=== PATIENT | male | born 1940 | race Hispanic/Latino ===

== ENCOUNTER 2018-10-29 18:37 | Inpatient (IN) | payer MEDICARE ==
[2018-10-29] MEDS ORDERED: ZOFRAN IV PRN (19:12)
[2018-10-29] MEDS ORDERED: SODIUM CHLORIDE FLUSH SYRINGE 10 ML IV PRN (19:12)
[2018-10-29] MEDS ORDERED: TYLENOL PO PRN (19:12)
[2018-10-29] MEDS ORDERED: REGLAN IV PRN (19:12)
[2018-10-29] MEDS ORDERED: PERCOCET 5/325 PO PRN (19:12)
--- NOTE | 2018-10-29 19:12 | History and Physical Report ---
History of Present Illness Date of examination: 10/29/18 Date of admission: 10/29/18 18:37 Medications and Allergies Allergies Allergy/AdvReac Type Severity Reaction Status Date / Time No Known Allergies Allergy Unverified 10/29/18 17:02
[2018-10-29 20:00] LABS: Basophils % (Auto) 0.4 % (0.0-1.8); Eosinophils # (Auto) 0.2 K/mm3 (0.0-0.4); Eosinophils % (Auto) 2.3 % (0.0-4.3); Hematocrit 31.6 % (35.5-45.6); Hemoglobin 10.8 gm/dl (11.8-15.2); Lymphocytes # (Auto) 1.7 K/mm3 (1.2-5.4); Lymphocytes % (Auto) 16.2 % (13.4-35.0); Mean Corpuscular HGB Conc 34 % (32-34); Mean Corpuscular Volume 89 fl (84-94); Monocytes % (Auto) 9.6 % (0.0-7.3); Platelet Count 238 K/mm3 (140-440); Red Blood Count 3.56 M/mm3 (3.65-5.03); Red Cell Distribution Width 14.5 % (13.2-15.2)
[2018-10-29 20:32] LABS: Albumin 1.4 g/dL (3.9-5); Calcium 6.7 mg/dL (8.4-10.2); Chol/HDL Ratio 1.5 %
[2018-10-29] MEDS: PEPCID PO SCH (22:44)
[2018-10-29] MEDS: K-DUR PO SCH (22:44)
[2018-10-29] MEDS: HEPARIN SUB-Q SCH (22:45)
[2018-10-29] MEDS: SODIUM CHLORIDE FLUSH SYRINGE 10 ML IV SCH (22:45)
[2018-10-30] MEDS: K-DUR PO SCH ×4 (02:40→21:38)
[2018-10-30] MEDS ORDERED: LASIX IV SCH (06:00)
--- NOTE | 2018-10-30 06:33 | Event Note ---
Date: 10/29/18 See H//P in reports Nephrotic syndrome CKD Htn Severe malnutrition Albumin 1.4 Hypokalemia
--- NOTE | 2018-10-30 07:09 | History and Physical Report ---
CHIEF COMPLAINT: 1. Shortness of breath for 1 week. 2. Swelling of both the legs for 1 month. HISTORY OF PRESENT ILLNESS: A 78-year-old male with history of hypertension, chronic kidney disease, hyperlipidemia, hypertension, and GERD, comes in for swelling of both the legs for 1-month duration and shortness of breath on minimal exertion for 1 week. Orthopnea present. The patient sent directly from Dr. Toledo's office for anasarca. The patient has been having swelling of the legs with 4+ pitting edema. No chest pain or palpitations. The patient has class 4 [employer] symptoms. No fever or chills. No recent travel. The patient also stated that he is getting excessively tired because he has to take care of her sick spouse. No exacerbating or relieving factors. PAST MEDICAL HISTORY: 1. As mentioned hypertension. 2. Depression. 3. Hyperlipidemia. 4. Gastroesophageal reflux disease. 5. BPH. PAST SURGICAL HISTORY: Unavailable. SOCIAL HISTORY: Does not smoke. No alcohol, no recreational drugs. FAMILY HISTORY: Significant for hypertension. REVIEW OF SYSTEMS: Significant for orthopnea, class 4 NYHA symptoms and severe swelling of both the legs with 4+ pitting edema. Otherwise, review of systems negative. No fever or chills. PHYSICAL EXAMINATION: GENERAL: Elderly male lying in bed comfortably. VITAL SIGNS: Blood pressure is 98/55, pulse is 55, temperature is 97.7, respiratory rate is 20. HEENT: Unremarkable. Pupils equal and reactive. NECK: Supple, no lymphadenopathy, no thyromegaly. LUNGS: Clear to auscultation and percussion. Good air entry. CARDIOVASCULAR: S1, S2 heard. No gallop, no murmur, no rub. Apical impulse in left fifth intercostal space and midclavicular line. ABDOMEN: Soft and benign. No hepatosplenomegaly. No guarding, no rigidity. Hernial orifices are normal. EXTREMITIES: 4+ pitting edema present. Scrotum is swollen. CENTRAL NERVOUS SYSTEM: Alert and oriented x 4, nonfocal exam. SKIN: Normal. LABORATORY DATA: Significant for white count of 10,500, H and H is 10.8 and 31.6, platelet count is 238,000. Sodium is 139, potassium is 2.7, BUN and creatinine is 33 and 3.7, glucose is 152, calcium is 6.7. Total protein is 4.6, albumin is 1.4. LDL cholesterol is 12. Cholesterol is 39, HDL is 26. EKG and chest x-ray are pending. ASSESSMENT AND PLAN: 1. Anasarca versus nephrotic syndrome. A 24-hour urine collection for protein was ordered. IV Lasix for the time being. 2. Chronic kidney disease. Nephrology consulted. Dr. Toledo's patient was directly admitted. 3. Hypertension. Continue antihypertensives. 4. Congestive heart failure secondary to volume overload. Echocardiogram ordered. 5. Congestive heart failure exacerbation. IV Lasix. Echo for ejection fraction. 6. Gastroesophageal reflux disease. Continue pantoprazole. 7. Benign prostatic hypertrophy. Continue Flomax. 8. Depression. Continue Celexa. 9. Hyperlipidemia. Continue atorvastatin. 10. Deep venous thrombosis prophylaxis, heparin 5000 q. 12. In summary, the patient has anasarca/nephrotic syndrome, chronic kidney disease, hyperlipidemia, hypertension, GERD, and BPH. Hypokalemia, supplemented. JOB# [id number] VSM/NTS
[2018-10-30 07:53] LABS: Basophils # (Auto) 0.1 K/mm3 (0.0-0.1); Basophils % (Auto) 0.8 % (0.0-1.8); Eosinophils # (Auto) 0.5 K/mm3 (0.0-0.4); Eosinophils % (Auto) 5.1 % (0.0-4.3); Hematocrit 35.3 % (35.5-45.6); Hemoglobin 11.8 gm/dl (11.8-15.2); Lymphocytes # (Auto) 1.9 K/mm3 (1.2-5.4); Lymphocytes % (Auto) 20.6 % (13.4-35.0); Mean Corpuscular HGB Conc 33 % (32-34); Mean Corpuscular Volume 88 fl (84-94); Monocytes # (Auto) 0.8 K/mm3 (0.0-0.8); Monocytes % (Auto) 8.9 % (0.0-7.3); Platelet Count 248 K/mm3 (140-440); Red Blood Count 4.01 M/mm3 (3.65-5.03); Red Cell Distribution Width 14.1 % (13.2-15.2)
[2018-10-30 08:20] LABS: Calcium 6.7 mg/dL (8.4-10.2)
[2018-10-30] MEDS ORDERED: LASIX PO SCH (09:00)
[2018-10-30] MEDS: PROTONIX PO SCH (09:26)
[2018-10-30] MEDS: celeXA PO SCH (09:26)
[2018-10-30] MEDS: PEPCID PO SCH ×2 (09:26→21:44)
[2018-10-30] MEDS: FLOMAX PO SCH (09:26)
[2018-10-30] MEDS: ROCALTROL PO SCH (09:27)
[2018-10-30] MEDS: NORVASC PO SCH (09:28)
[2018-10-30] MEDS: LOPRESSOR PO SCH ×2 (09:28→21:40)
[2018-10-30] MEDS: HEPARIN SUB-Q SCH ×2 (09:28→21:38)
[2018-10-30] MEDS: SODIUM CHLORIDE FLUSH SYRINGE 10 ML IV SCH ×2 (09:28→21:40)
[2018-10-30] MEDS ORDERED: NON-FORMULARY (Pantoprazole Sodium 40 MG) PO SCH (10:00)
[2018-10-30] MEDS ORDERED: NON-FORMULARY (Metoprolol Tartrate 50 MG) PO SCH (10:00)
[2018-10-30] MEDS ORDERED: ATORVASTATIN CALCIUM 10 MG PO SCH (10:00)
--- NOTE | 2018-10-30 10:28 | Consultation ---
History of Present Illness - Reason for Consult chronic renal failure, other (edema) - History of Present Illness This is a very pleasant 78-year-old male with a past medical history of chronic kidney disease now stage IV in the setting of diabetes, hypertension, who is well known to our outpatient clinic as he sees my colleague Dr. Toledo in the office. He was a direct admit from her nephrology clinic secondary to worsening lower extremity edema as well as scrotal edema and overall worsening anasarca. The symptoms have apparently been going on and then progressively worsening over the last 2 weeks per patient and daughter at bedside. He was started on oral Lasix therapy and he is in the process of obtaining 24-hour urine collection for proteinuria evaluation. Labs noted upon admission show serum creatinine initially at its baseline of around 3.5-3.8 with significantly reduced albumen levels of 1.4. He has significant lower extremity edema and anasarca leading up to his abdomen. Review of his charts have shown a progressively worsening kidney function. He denies history of congestive heart failure or any liver disease at this time. Past History Past Medical History: diabetes, hypertension, hyperlipidemia, renal failure Past Surgical History: Other (bladder surgery, knee surgery) Social history: no significant social history Family history: no significant family history Medications and Allergies Allergies Allergy/AdvReac Type Severity Reaction Status Date / Time No Known Allergies Allergy Unverified 10/29/18 17:02 Home Medications Medication Instructions Recorded Confirmed Last Taken Type Amlodipine Besylate [Norvasc] 10 mg PO DAILY 10/29/18 10/29/18 10/29/18 History 10 Atorvastatin Calcium [Lipitor] 10 mg PO DAILY 10/29/18 10/29/18 10/29/18 History 10MG Furosemide [Lasix TAB] 40 mg PO BID 10/29/18 10/29/18 10/29/18 History 40MG Metoprolol Tartrate 50 mg PO BID 10/29/18 10/29/18 10/29/18 History 50MG Pantoprazole Sodium 40 mg PO DAILY 10/29/18 10/29/18 10/29/18 History Calcitriol [Rocaltrol] 0.5 mcg PO 10/30/18 10/29/18 History 0.5MCG Citalopram Hydrobromide 20 mg PO DAILY 10/30/18 10/30/18 10/29/18 History [Citalopram HBr] 20MG Potassium 20 meq PO BID 10/30/18 10/30/18 10/29/18 History 20MG Tamsulosin [Flomax] 0.4 mg PO QDAY 10/30/18 10/30/18 10/28/18 History Active Meds: Active Medications Acetaminophen (Tylenol) 650 mg PO Q4H PRN PRN Reason: Pain MILD(1-3)/Fever >100.5/CORONEL Amlodipine Besylate (Norvasc) 10 mg PO DAILY [facility] Last Admin: 10/30/18 09:28 Dose: Not Given Documented by: Atorvastatin Calcium (Lipitor) 10 mg PO QHS [facility] Calcitriol (Rocaltrol) 0.5 mcg PO QDAY [facility] Last Admin: 10/30/18 09:27 Dose: 0.5 mcg Documented by: Citalopram Hydrobromide (Celexa) 20 mg PO DAILY [facility] Last Admin: 10/30/18 09:26 Dose: 20 mg Documented by: Famotidine (Pepcid) 10 mg PO BID [facility] Last Admin: 10/30/18 09:26 Dose: 10 mg Documented by: Furosemide (Lasix) 40 mg PO 0600,1800 [facility] Last Admin: 10/30/18 09:26 Dose: 40 mg Documented by: Heparin Sodium (Porcine) (Heparin) 5,000 unit SUB-Q Q12HR [facility] Last Admin: 10/30/18 09:28 Dose: Not Given Documented by: Metoclopramide HCl (Reglan) 10 mg IV Q6H PRN PRN Reason: Nausea And Vomiting Metoprolol Tartrate (Lopressor) 50 mg PO BID [facility] Last Admin: 10/30/18 09:28 Dose: Not Given Documented by: Ondansetron HCl (Zofran) 4 mg IV Q8H PRN PRN Reason: Nausea And Vomiting Last Admin: 10/30/18 09:27 Dose: 4 mg Documented by: Oxycodone/Acetaminophen (Percocet 5/325) 1 tab PO Q6H PRN PRN Reason: Pain, Moderate (4-6) Last Admin: 10/29/18 22:47 Dose: 1 tab Documented by: Pantoprazole Sodium (Protonix) 40 mg PO DAILY [facility] Last Admin: 10/30/18 09:26 Dose: 40 mg Documented by: Potassium Chloride (K-Dur) 20 meq PO Q12H [facility] Last Admin: 10/30/18 09:26 Dose: 20 meq Documented by: Sodium Chloride (Sodium Chloride Flush Syringe 10 Ml) 10 ml IV BID [facility] Last Admin: 10/30/18 09:28 Dose: 10 ml Documented by: Sodium Chloride (Sodium Chloride Flush Syringe 10 Ml) 10 ml IV PRN PRN PRN Reason: LINE FLUSH Tamsulosin HCl (Flomax) 0.4 mg PO QDAY [facility] Last Admin: 10/30/18 09:26 Dose: 0.4 mg Documented by: Review of Systems All systems: negative Constitutional: weight gain, fatigue, weakness Musculoskeletal: other (+edema/anasarca) Exam - Vital Signs Vital signs: Vital Signs Pulse Resp BP Pulse Ox 57 L 20 131/65 98 10/29/18 20:02 10/29/18 20:02 10/29/18 20:02 10/29/18 20:02 - General Appearance General appearance: appears stated age, chronically ill, frail EENT: ATNC, PERRL Neck: Present: neck supple, trachea midline Respiratory: Clear to Ascultation, Normal Exam Heart: regular, S1S2 Gastrointestinal: Present: normal, normoactive bowel sounds Integumentary: other Neurologic: no focal deficit, no asterixis, alert and oriented x3, CN 3-12 intact Musculoskeletal: Present: other (3+ pitting edema ) Psychiatric: mood/affect appropriate, cooperative Results - Lab Results 10/30/18 07:29 10/30/18 07:29 Most recent lab results Calcium 6.7 mg/dL (8.4-10.2) L 10/30/18 07:29 Assessment and Plan - Patient Problems (1) CKD (chronic kidney disease), stage IV Current Visit: Yes Status: Chronic Plan to address problem: Patient with essentially progressively worsening chronic kidney disease noted on laboratory studies. He is now progressed to stage IV. He is not presenting with any acute uremic symptoms at this time that would require any hemodialysis initiation. We will aggressively diuresis and will in fact switched his by mouth to IV formula of Lasix twice a day along with albumen supplementation to further augment appropriate diuresis. (2) Hypertensive chronic kidney disease with stage 1 through stage 4 chronic kidney disease, or unspecified chronic kidney disease Current Visit: Yes Status: Chronic Plan to address problem: Continue on current regimen and we'll monitor closely (3) Type 2 diabetes mellitus with diabetic chronic kidney disease Current Visit: Yes Status: Chronic Qualifiers: Chronic kidney disease stage: stage 4 (severe) Plan to address problem: We will assess the hemoglobin A1c level today to assess control of his diabetes. Diabetes management per primary team. (4) Fluid overload Current Visit: Yes Status: Acute Plan to address problem: Significantly worsening fluid overload over the past 2-3 weeks of unclear etiology. One possible cause could be just his progressive chronic kidney disease. He has significant anasarca and edema on examination and he is undergoing a 24-hour urine collection for proteinuria evaluation. I have also added various serologic laboratory studies for further evaluation. Depending on the level of proteinuria and results of renal ultrasound we'll decide whether or not biopsy would be necessary at this time given his significantly worsening anasarca over a short period of time. (5) Secondary hyperparathyroidism (of renal origin) Current Visit: Yes Status: Acute Plan to address problem: Patient to continue home dose of calcitriol.
--- NOTE | 2018-10-30 16:52 | XRay Report ---
CHEST 2 VIEWS INDICATION / CLINICAL INFORMATION: CHF. COMPARISON: Chest x-ray 04/24/2012 FINDINGS: SUPPORT DEVICES: None. HEART / MEDIASTINUM: No significant abnormality. LUNGS / PLEURA: Small left pleural effusion No pneumothorax. ADDITIONAL FINDINGS: No significant additional findings. IMPRESSION: 1. New small left pleural effusion Signer Name: Kam Strange MD Signed: 10/30/2018 4:47 PM Workstation Name: [id number]
--- NOTE | 2018-10-30 17:54 | Progress Note ---
Assessment and Plan Assessment and plan: Patient is a 78 yo man with a history of hypertension, CKD, GERD, BPH, depression, dyslipidemia who presents to [facility] via direct admission from [facility], Dr. Toledo's office for anasarca with sob. He was found to have significant pitting leg edema and severely low albumin. 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 Follow-up on current diagnosis of Anasarca. No overnight events reported to me. Patient denies any chest pain, nausea/vomiting or severe headaches. Imaging, nursing note, chart, labs and old chart reviewed. Discussed with patient. son Griffin and daughter Rubi at bedside, also granddaughter Shanelle at bedside Hospitalist Physical - Physical exam Narrative exam: Gen: thin frail, chronic disable appearing WDWN, NAD, Awake, Alert, Orientated x 3 HEENT: NCAT, EOMI, PERRL, OP Clear Neck: supple, no adenopathy, no thyromegaly, no JVD CVS/Heart: RRR, normal S1S2, pulses present bilaterally Chest/Lungs: diminished, Symmetrical chest expansion, good air entry bilaterally GI/Abdomen: soft, diminished, good bowel sounds, no guarding or rebound /Bladder: sha anasarcha, no suprapubic tenderness, no CVA or paraspinal tenderness Extermity/Skin: significant bilateral pitting leg edema MSK: FROM x 4 Neuro: CN 2-12 grossly intact, no new focal deficits Psych: calm - Constitutional Vitals: Temp Pulse Resp BP Pulse Ox 97.6 F 59 L 18 106/56 99 10/30/18 08:32 10/30/18 08:32 10/30/18 08:32 10/30/18 08:32 10/30/18 08:32 Results - Labs CBC & Chem 7: 10/30/18 07:29 10/30/18 07:29 Labs: Laboratory Last Values WBC 9.4 K/mm3 (4.5-11.0) 10/30/18 07:29 RBC 4.01 M/mm3 (3.65-5.03) 10/30/18 07:29 Hgb 11.8 gm/dl (11.8-15.2) 10/30/18 07:29 Hct 35.3 % (35.5-45.6) L 10/30/18 07:29 MCV 88 fl (84-94) 10/30/18 07:29 MCH 29 pg (28-32) 10/30/18 07: MCHC 33 % (32-34) 10/30/18 07:29 RDW 14.1 % (13.2-15.2) 10/30/18 07:29 Plt Count 248 K/mm3 (140-440) 10/30/18 07:29 Lymph % (Auto) 20.6 % (13.4-35.0) 10/30/18 07:29 Ogle % (Auto) 8.9 % (0.0-7.3) H 10/30/18 07:29 Eos % (Auto) 5.1 % (0.0-4.3) H 10/30/18 07:29 Baso % (Auto) 0.8 % (0.0-1.8) 10/30/18 07:29 Lymph # 1.9 K/mm3 (1.2-5.4) 10/30/18 07:29 Ogle # 0.8 K/mm3 (0.0-0.8) 10/30/18 07:29 Eos # 0.5 K/mm3 (0.0-0.4) H 10/30/18 07:29 Baso # 0.1 K/mm3 (0.0-0.1) 10/30/18 07:29 Seg Neutrophils % 64.6 % (40.0-70.0) 10/30/18 07:29 Seg Neutrophils # 6.1 K/mm3 (1.8-7.7) 10/30/18 07:29 Sodium 143 mmol/L (137-145) 10/30/18 07:29 Potassium 3.3 mmol/L (3.6-5.0) L D 10/30/18 07:29 Chloride 110.1 mmol/L (98-107) H 10/30/18 07:29 Carbon Dioxide 23 mmol/L (22-30) 10/30/18 07:29 13 mmol/L 10/30/18 07:29 BUN 33 mg/dL (9-20) H 10/30/18 07:29 3.6 mg/dL (0.8-1.5) H 10/30/18 07:29 Estimated GFR 17 ml/min 10/30/18 07:29 9 % 10/30/18 07:29 Glucose 91 mg/dL (75-100) 10/30/18 07:29 POC Glucose 145 (70-105) H 10/29/18 21:08 5.8 % (4-6) 10/29/18 19:36 Calcium 6.7 mg/dL (8.4-10.2) L 10/30/18 07:29 0.30 mg/dL (0.1-1.2) 10/29/18 19:36 AST 28 units/L (5-40) 10/29/18 19:36 ALT 31 units/L (7-56) 10/29/18 19:36 104 units/L (35-129) 10/29/18 19:36 4.6 g/dL (6.3-8.2) L 10/29/18 19:36 1.4 g/dL (3.9-5) L 10/29/18 19:36 0.4 % 10/29/18 19:36 Triglycerides 28 mg/dL (2-149) 10/29/18 19:36 Cholesterol 39 mg/dL (50-199) L 10/29/18 19:36 12 mg/dL (50-130) L 10/29/18 19:36 26 mg/dL (40-59) L 10/29/18 19:36 1.50 % 10/29/18 19:36 Hep Bs Antigen Non-reactive (Negative) 10/30/18 10:53 Non-reactive (NonReactive) 10/30/18 10:53 Active Medications - Current Medications Current Medications: Generic Name Dose Route Start Last Admin Trade Name Tri PRN Reason Stop Dose Admin Acetaminophen 650 mg 10/29/18 19:12 Tylenol PO Q4H PRN Pain MILD(1-3)/Fever >100.5/CORONEL Albumin Human 25 gm 10/30/18 22:00 Alburx 25% (Albumin) IV Q12HR [facility] Amlodipine Besylate 10 mg 10/30/18 10:00 10/30/18 09:28 Norvasc PO Not Given DAILY [facility] Atorvastatin Calcium 10 mg 10/30/18 22:00 Lipitor PO QHS [facility] Calcitriol 0.5 mcg 10/30/18 10:00 10/30/18 09:27 Rocaltrol PO 0.5 mcg QDAY [facility] Administration Citalopram Hydrobromide 20 mg 10/30/18 10:00 10/30/18 09:26 Celexa PO 20 mg DAILY [facility] Administration Famotidine 10 mg 10/29/18 22:00 10/30/18 09:26 Pepcid PO 10 mg BID [facility] Administration Furosemide 80 mg 10/30/18 18:00 Lasix IV 0600,1800 [facility] Heparin Sodium (Porcine) 5,000 unit 10/29/18 22:00 10/30/18 09:28 Heparin SUB-Q Not Given Q12HR [facility] Metoclopramide HCl 10 mg 10/29/18 19:12 Reglan IV Q6H PRN Nausea And Vomiting Metoprolol Tartrate 50 mg 10/30/18 10:00 10/30/18 09:28 Lopressor PO Not Given BID [facility] Ondansetron HCl 4 mg 10/29/18 19:12 10/30/18 09:27 Zofran IV 4 mg Q8H PRN Administration Nausea And Vomiting Oxycodone/Acetaminophen 1 tab 10/29/18 19:12 10/29/18 22:47 Percocet 5/325 PO 1 tab Q6H PRN Administration Pain, Moderate (4-6) Pantoprazole Sodium 40 mg 10/30/18 10:00 10/30/18 09:26 Protonix PO 40 mg DAILY [facility] Administration Potassium Chloride 20 meq 10/30/18 10:00 10/30/18 09:26 K-Dur PO 20 meq Q12H [facility] Administration Sodium Chloride 10 ml 10/29/18 22:00 10/30/18 09:28 Sodium Chloride Flush Syringe 10 Ml IV 10 ml BID [facility] Administration Sodium Chloride 10 ml 07/30/19 19:12 Sodium Chloride Flush Syringe 10 Ml IV PRN PRN LINE FLUSH Tamsulosin HCl 0.4 mg 10/30/18 10:00 10/30/18 09:26 Flomax PO 0.4 mg QDAY [facility] Administration Nutrition/Malnutrition Assess - Dietary Evaluation Nutrition/Malnutrition Findings: Nutrition Notes Start: 10/30/18 17:21 Freq: Status: Active Protocol: Document 10/30/18 17:21 RM (Rec: 10/30/18 17:35 RM [id number]) Nutrition Notes Need for Assessment generated from: MD Order Initial or Follow up Assessment Current Diagnosis CKD(stage I-IV),Hypertension, Heart Failure,Hyperlipidemia Other Pertinent Diagnosis Nephrotic syndrome, Depression , GERD, Volume overload Current Diet Renal w/Ensure Enlive Labs/Tests A1c 5.8 Pertinent Medications Zofran, K-dur, Lasix Height 5 ft 10 in Weight 83.1 kg [place] Body Weight (kg) 75.45 BMI 26.2 Subjective/Other Information Consulted for ONS diet. Screened for new onset DM. Pt stated that his appetite is good. Stated that ate 50% of breakfast and all of his lunch except for the chicken because it was not seasoned. Noted preferences. Pt stated that he drank some of the Ensure Enlive. Pt stated that he was diagnosed w/DM in the past but wants to bring A1c out of pre diabetic range. Pt stated that he is unable to read the print on nutritional labels. Write gave pt office analyst w/ guidelines for measuring out 1 carbohydrate serving worth of food. Burn Absent Trauma Absent #1 Nutrition Diagnosis Inadequate oral intake Etiology food preferences As Evidenced by Signs and Symptoms pt statement that he ate 50% of his breakfast and all of his lunch except the chicken Is patient on ventilator? No Is Patient Ambulatory and/or Out of Bed No REE-([place]-confined to bed) 1887.000 Calculation Used for Recommendations [place] Additional Notes Protein Needs: (0.8-1g/kg) Fluid Needs: 1 ml/kcal Nutrition Intervention Change Diet Order: Continue current Add Supplement/Snack (indicate name/kcal Nepro 1 daily /protein ) Provides kCal: 425 Provides Protein (gm) 19 Education Handouts Provided Diabetes Nutrition Placemat Goal #1 Meet at least 75% of calorie and protein needs via PO and ONS intakes Anticipated Discharge Needs: Renal diet Follow-Up By: 11/01/18 Additional Comments Follow for PO and ONS intakes
[2018-10-30] MEDS: LASIX IV SCH (19:09)
[2018-10-30 20:47] LABS: Hematocrit 36.6 % (35.5-45.6); Hemoglobin 11.4 gm/dl (11.8-15.2); Mean Corpuscular HGB Conc 31 % (32-34); Mean Corpuscular Volume 94 fl (84-94); Platelet Count 242 K/mm3 (140-440); Red Blood Count 3.88 M/mm3 (3.65-5.03); Red Cell Distribution Width 16.1 % (13.2-15.2)
[2018-10-30 21:01] LABS: Albumin 1.4 g/dL (3.9-5); Calcium 6.6 mg/dL (8.4-10.2)
[2018-10-30] MEDS ORDERED: ALBURX 25% (ALBUMIN) IV SCH (22:00)
[2018-10-30 22:24] LABS: Creatinine 24 Hour,Urine 0.7 (0.8-2.8)
[2018-10-30] MEDS: ALBURX 25% (ALBUMIN) IV SCH (23:04)
[2018-10-31] MEDS: LASIX IV SCH ×2 (06:37→18:13)
--- NOTE | 2018-10-31 09:36 | Progress Note ---
Assessment and Plan - Patient Problems (1) CKD (chronic kidney disease), stage IV Current Visit: Yes Status: Chronic Plan to address problem: Patient with essentially progressively worsening chronic kidney disease noted on laboratory studies. He is now progressed to stage IV. He is not presenting with any acute uremic symptoms at this time that would require any hemodialysis initiation. We will aggressively diuresis with current regimen of IV Lasix twice a day along with albumen supplementation to further augment appropriate diuresis. (2) Hypertensive chronic kidney disease with stage 1 through stage 4 chronic kidney disease, or unspecified chronic kidney disease Current Visit: Yes Status: Chronic Plan to address problem: Continue on current regimen and we'll monitor closely (3) Type 2 diabetes mellitus with diabetic chronic kidney disease Current Visit: Yes Status: Chronic Qualifiers: Chronic kidney disease stage: stage 4 (severe) Plan to address problem: Diabetes management per primary team. (4) Fluid overload Current Visit: Yes Status: Acute Plan to address problem: Significantly worsening fluid overload over the past 2-3 weeks of unclear etiology. One possible cause could be just his progressive chronic kidney disease. He has significant anasarca and edema on examination and he underwent a 24-hour urine collection for proteinuria evaluation, with only 220 mg/dL noted. This is in the setting of low urine volume collection as well as low urine creatinine which may overall affect accuracy of results. Serologic tests are pending at this time. (5) Secondary hyperparathyroidism (of renal origin) Current Visit: Yes Status: Acute Plan to address problem: Patient to continue home dose of calcitriol. Subjective Date of service: 10/31/18 Interval history: No acute events overnight. He is diuresing more appropriately at this time. Swelling is improving but still is significant. He is on Lasix 80 mg IV twice a day with proceeding doses of albumin. 24-hour urine study noted with only 1 L of urine output volume collected and low urine creatinine which may cause inconsistent findings. He is only spilling 220 mg/dL during this 24-hour urine study. Objective - Vital Signs Vital signs: Vital Signs - 12hr 10/30/18 10/30/18 10/31/18 21:40 23:26 04:15 Temperature 98.4 F 98.1 F Pulse Rate 56 L 56 L 61 Respiratory 18 18 Rate Blood Pressure 125/65 116/68 O2 Sat by Pulse 92 90 Oximetry 10/31/18 08:05 Temperature 97.7 F Pulse Rate Respiratory 18 Rate Blood Pressure 130/66 O2 Sat by Pulse Oximetry - General Appearance General appearance: well-developed, well-nourished, appears stated age EENT: ATNC, PERRL Neck: no JVD, no thyromegaly Respiratory: Present: Decreased Breath Sounds Cardiology: regular, normal heart rate Gastrointestinal: normal, normoactive bowel sounds Integumentary: no rash, warm and dry Neurologic: no focal deficit, no asterixis, CN 3-12 intact Musculoskeletal: other (2-3+ pitting edema ) Psychiatric: mood/affect appropriate, cooperative - Lab 10/30/18 19:50 10/30/18 19:50 Most recent lab results Calcium 6.6 mg/dL (8.4-10.2) L 10/30/18 19:50 69.0 mg/dL (0.1-20.0) H 10/29/18 22:15 Ur Total Protein 24 Hr 220.00 mg/dL (2-200) H 10/29/18 22:15 22 mg/dL (5-11.8) H 10/29/18 22:15 - Allied health notes Allied health notes reviewed: nursing Medications & Allergies - Medications Allergies/Adverse Reactions: Allergies No Known Allergies Allergy (Unverified 10/29/18 17:02) Home Medications: Home Medications Medication Instructions Recorded Confirmed Last Taken Type Amlodipine Besylate [Norvasc] 10 mg PO DAILY 10/29/18 10/29/18 10/29/18 History 10 Atorvastatin Calcium [Lipitor] 10 mg PO DAILY 10/29/18 10/29/18 10/29/18 History 10MG Furosemide [Lasix TAB] 40 mg PO BID 10/29/18 10/29/18 10/29/18 History 40MG Metoprolol Tartrate 50 mg PO BID 10/29/18 10/29/18 10/29/18 History 50MG Pantoprazole Sodium 40 mg PO DAILY 10/29/18 10/29/18 10/29/18 History Calcitriol [Rocaltrol] 0.5 mcg PO 10/30/18 10/29/18 History 0.5MCG Citalopram Hydrobromide 20 mg PO DAILY 10/30/18 10/30/18 10/29/18 History [Citalopram HBr] 20MG Potassium 20 meq PO BID 10/30/18 10/30/18 10/29/18 History 20MG Tamsulosin [Flomax] 0.4 mg PO QDAY 10/30/18 10/30/18 10/28/18 History Active Medications: Generic Name Dose Route Start Last Admin Trade Name Freq PRN Reason Stop Dose Admin Acetaminophen 650 mg 10/29/18 19:12 Tylenol PO Q4H PRN Pain MILD(1-3)/Fever >100.5/CORONEL Albumin Human 25 gm 10/30/18 22:00 10/30/18 23:04 Alburx 25% (Albumin) IV 25 gm Q12HR BEBO Administration Amlodipine Besylate 10 mg 10/30/18 10:00 10/30/18 09:28 Norvasc PO Not Given DAILY BEBO Atorvastatin Calcium 10 mg 10/30/18 22:00 10/30/18 21:38 Lipitor PO 10 mg QHS BEBO Administration Calcitriol 0.5 mcg 10/30/18 10:00 10/30/18 09:27 Rocaltrol PO 0.5 mcg QDAY BEBO Administration Citalopram Hydrobromide 20 mg 10/30/18 10:00 10/30/18 09:26 Celexa PO 20 mg DAILY BEBO Administration Famotidine 10 mg 10/29/18 22:00 10/30/18 21:44 Pepcid PO 10 mg BID BEBO Administration Furosemide 80 mg 10/30/18 18:00 10/31/18 06:37 Lasix IV 80 mg 0600,1800 BEBO Administration Heparin Sodium (Porcine) 5,000 unit 10/29/18 22:00 10/30/18 21:38 Heparin SUB-Q 5,000 unit Q12HR BEBO Administration Metoclopramide HCl 10 mg 10/29/18 19:12 Reglan IV Q6H PRN Nausea And Vomiting Metoprolol Tartrate 50 mg 10/30/18 10:00 10/30/18 21:40 Lopressor PO Not Given BID BEBO Ondansetron HCl 4 mg 10/29/18 19:12 10/30/18 09:27 Zofran IV 4 mg Q8H PRN Administration Nausea And Vomiting Oxycodone/Acetaminophen 1 tab 10/29/18 19:12 10/29/18 22:47 Percocet 5/325 PO 1 tab Q6H PRN Administration Pain, Moderate (4-6) Pantoprazole Sodium 40 mg 10/30/18 10:00 10/30/18 09:26 Protonix PO 40 mg DAILY BEBO Administration Potassium Chloride 20 meq 10/30/18 10:00 10/30/18 21:38 K-Dur PO 20 meq Q12H BEBO Administration Sodium Chloride 10 ml 10/29/18 22:00 10/30/18 21:40 Sodium Chloride Flush Syringe 10 Ml IV 10 ml BID BEBO Administration Sodium Chloride 10 ml 10/29/18 19:12 Sodium Chloride Flush Syringe 10 Ml IV PRN PRN LINE FLUSH Tamsulosin HCl 0.4 mg 10/30/18 10:00 10/30/18 09:26 Flomax PO 0.4 mg QDAY BEBO Administration
[2018-10-31] MEDS: K-DUR PO SCH ×2 (10:30→21:08)
[2018-10-31] MEDS: PROTONIX PO SCH (10:30)
[2018-10-31] MEDS: FLOMAX PO SCH (10:30)
[2018-10-31] MEDS: celeXA PO SCH (10:30)
[2018-10-31] MEDS: ROCALTROL PO SCH (10:30)
[2018-10-31] MEDS: LOPRESSOR PO SCH ×2 (10:30→21:09)
[2018-10-31] MEDS: SODIUM CHLORIDE FLUSH SYRINGE 10 ML IV SCH ×2 (10:35→21:09)
[2018-10-31] MEDS: HEPARIN SUB-Q SCH ×2 (10:40→21:09)
[2018-10-31] MEDS: ALBURX 25% (ALBUMIN) IV SCH ×2 (11:00→21:08)
[2018-10-31] MEDS: NORVASC PO SCH (11:06)
--- NOTE | 2018-10-31 15:42 | Progress Note ---
Assessment and Plan Assessment and plan: Patient is a 78 yo man with a history of hypertension, CKD, GERD, BPH, depression, dyslipidemia who presents to [facility] via direct admission from Beading Installer, Dr. Toledo's office for anasarca with sob. He was found to have significant pitting leg edema and severely low albumin. -Anasarca due to nephrotic syndrome vs CHF: 24 hour protein done Nephrology following, input noted, treat with iv lasix twice daily and IV albumin and monitor renal function closely, Nephrology is following -Severe hypoalbuminemia: IV albumin daily per Renal -ARF/CKD 4, atn+vasomotor suspected, poa: Nephrology consulted, input note, no HD yet -Suspected Acute diastolic heart failure: treat with iv lasix, ordered ECHO today -Hypokalemia: replete and monitor bmp closely -Hypertension: continue antihypertensive -Severe malnutrition; consult Post Exchange Manager, treat with albumin -GERD: prontonix -Dyslipidemia: statin -BPH; continue flomax DVT ppx: sq heparin ECHO pending Disposition: continue inpatient care, d/c once cleared by Nephrology, ECHO done but report is pending. History Interval history: Patient was seen and examined. Follow-up on current diagnosis of Anasarca. No overnight events reported to me. Patient denies any chest pain, nausea/vomiting or severe headaches. Imaging, nursing note, chart, labs and old chart reviewed. Discussed with patient. Daughter Rubi at bedside Hospitalist Physical - Physical exam Narrative exam: Gen: thin frail, chronic disable appearing WDWN, NAD, Awake, Alert, Orientated x 3 HEENT: NCAT, EOMI, PERRL, OP Clear Neck: supple, no adenopathy, no thyromegaly, no JVD CVS/Heart: RRR, normal S1S2, pulses present bilaterally Chest/Lungs: diminished, Symmetrical chest expansion, good air entry bilaterally GI/Abdomen: soft, diminished, good bowel sounds, no guarding or rebound /Bladder: sha anasarcha, no suprapubic tenderness, no CVA or paraspinal tenderness Extermity/Skin: significant bilateral pitting leg edema MSK: FROM x 4 Neuro: CN 2-12 grossly intact, no new focal deficits Psych: calm - Constitutional Vitals: Temp Pulse Resp BP Pulse Ox 97.7 F 78 18 110/68 98 10/31/18 08:05 10/31/18 11:06 10/31/18 08:05 10/31/18 11:06 10/31/18 11:00 Results - Labs CBC & Chem 7: 10/30/18 19:50 10/30/18 19:50 Labs: Laboratory Last Values WBC 10.6 K/mm3 (4.5-11.0) 10/30/18 19:50 RBC 3.88 M/mm3 (3.65-5.03) 10/30/18 19:50 Hgb 11.4 gm/dl (11.8-15.2) L 10/30/18 19:50 Hct 36.6 % (35.5-45.6) 10/30/18 19:50 MCV 94 fl (84-94) 10/30/18 19:50 MCH 29 pg (28-32) 10/30/18 19:50 MCHC 31 % (32-34) L 10/30/18 19:50 RDW 16.1 % (13.2-15.2) H 10/30/18 19:50 Plt Count 242 K/mm3 (140-440) 10/30/18 19:50 Lymph % (Auto) Selling Specialist 10/30/18 19:50 [place] % (Auto) Selling Specialist 10/30/18 19:50 Eos % (Auto) Selling Specialist 10/30/18 19:50 Baso % (Auto) Selling Specialist 10/30/18 19:50 Lymph # Selling Specialist 10/30/18 19:50 [place] # Selling Specialist 10/30/18 19:50 Eos # Selling Specialist 10/30/18 19:50 Baso # Selling Specialist 10/30/18 19:50 Seg Neutrophils % Selling Specialist 10/30/18 19:50 Seg Neutrophils # Selling Specialist 10/30/18 19:50 Sodium 140 mmol/L (137-145) 10/30/18 19:50 Potassium 3.9 mmol/L (3.6-5.0) 10/30/18 19:50 Chloride 111.0 mmol/L (98-107) H 10/30/18 19:50 Carbon Dioxide 19 mmol/L (22-30) L 10/30/18 19:50 14 mmol/L 10/30/18 19:50 BUN 32 mg/dL (9-20) H 10/30/18 19:50 3.5 mg/dL (0.8-1.5) H 10/30/18 19:50 Estimated GFR 17 ml/min 10/30/18 19:50 9 % 10/30/18 19:50 Glucose 164 mg/dL (75-100) H 10/30/18 19:50 POC Glucose 145 (70-105) H 10/29/18 21:08 5.8 % (4-6) 10/29/18 19:36 Calcium 6.6 mg/dL (8.4-10.2) L 10/30/18 19:50 0.20 mg/dL (0.1-1.2) 10/30/18 19:50 AST 30 units/L (5-40) 10/30/18 19:50 ALT 33 units/L (7-56) 10/30/18 19:50 107 units/L (35-129) 10/30/18 19:50 NT-Pro-B Natriuret Pep 4629 pg/mL (0-900) H 10/30/18 19:50 4.4 g/dL (6.3-8.2) L 10/30/18 19:50 1.4 g/dL (3.9-5) L 10/30/18 19:50 0.5 % 10/30/18 19:50 Triglycerides 28 mg/dL (2-149) 10/29/18 19:36 Cholesterol 39 mg/dL (50-199) L 10/29/18 19:36 12 mg/dL (50-130) L 10/29/18 19:36 26 mg/dL (40-59) L 10/29/18 19:36 1.50 % 10/29/18 19:36 TSH 15.260 mlU/mL (0.270-4.200) H 10/30/18 19:50 1000 ml 10/29/18 22:15 1000 ml 10/29/18 22:15 69.0 mg/dL (0.1-20.0) H 10/29/18 22:15 Ur Creatinine 24 Hour 0.7 (0.8-2.8) L 10/29/18 22:15 6.2 mg/dL (0.1-34.0) 10/29/18 22:15 Ur Microalbumin 24 Hr 43.0 mcg/min (0-29) H 10/29/18 22:15 Ur Total Protein 24 Hr 220.00 mg/dL (2-200) H 10/29/18 22:15 256 10/29/18 22:15 Ur Urea Nitrogen 24 Hr 2.56 10/29/18 22:15 22 mg/dL (5-11.8) H 10/29/18 22:15 Hep Bs Antigen Non-reactive (Negative) 10/30/18 10:53 Non-reactive (NonReactive) 10/30/18 10:53 Active Medications - Current Medications Current Medications: Generic Name Dose Route Start Last Admin Trade Name Freq PRN Reason Stop Dose Admin Acetaminophen 650 mg 10/29/18 19:12 Tylenol PO Q4H PRN Pain MILD(1-3)/Fever >100.5/CORONEL Albumin Human 25 gm 10/30/18 22:00 10/31/18 11:00 Alburx 25% (Albumin) IV 25 gm Q12HR BEBO Administration Amlodipine Besylate 10 mg 10/30/18 10:00 10/31/18 11:06 Norvasc PO 10 mg DAILY BEBO Administration Atorvastatin Calcium 10 mg 10/30/18 22:00 10/30/18 21:38 Lipitor PO 10 mg QHS BEBO Administration Calcitriol 0.5 mcg 10/30/18 10:00 10/31/18 10:30 Rocaltrol PO 0.5 mcg QDAY BEBO Administration Citalopram Hydrobromide 20 mg 10/30/18 10:00 10/31/18 10:30 Celexa PO 20 mg DAILY BEBO Administration Furosemide 80 mg 10/30/18 18:00 10/31/18 06:37 Lasix IV 80 mg 0600,1800 BEBO Administration Heparin Sodium (Porcine) 5,000 unit 10/29/18 22:00 10/31/18 10:40 Heparin SUB-Q 5,000 unit Q12HR BEBO Administration Metoclopramide HCl 10 mg 10/29/18 19:12 Reglan IV Q6H PRN Nausea And Vomiting Metoprolol Tartrate 50 mg 10/30/18 10:00 10/31/18 10:30 Lopressor PO 50 mg BID BEBO Administration Ondansetron HCl 4 mg 10/29/18 19:12 10/30/18 09:27 Zofran IV 4 mg Q8H PRN Administration Nausea And Vomiting Oxycodone/Acetaminophen 1 tab 10/29/18 19:12 10/29/18 22:47 Percocet 5/325 PO 1 tab Q6H PRN Administration Pain, Moderate (4-6) Pantoprazole Sodium 40 mg 10/30/18 10:00 10/31/18 10:30 Protonix PO 40 mg DAILY BEBO Administration Potassium Chloride 20 meq 10/30/18 10:00 10/31/18 10:30 K-Dur PO 20 meq Q12H BEBO Administration Sodium Chloride 10 ml 10/29/18 22:00 10/31/18 10:35 Sodium Chloride Flush Syringe 10 Ml IV 10 ml BID BEBO Administration Sodium Chloride 10 ml 10/29/18 19:12 Sodium Chloride Flush Syringe 10 Ml IV PRN PRN LINE FLUSH Tamsulosin HCl 0.4 mg 10/30/18 10:00 10/31/18 10:30 Flomax PO 0.4 mg QDAY BEBO Administration Nutrition/Malnutrition Assess - Dietary Evaluation Nutrition/Malnutrition Findings: Nutrition Notes Start: 10/30/18 17:21 Freq: Status: Active Protocol: Document 10/30/18 17:21 RM (Rec: 10/30/18 17:35 RM [id number]) Nutrition Notes Need for Assessment generated from: MD Order Initial or Follow up Assessment Current Diagnosis CKD(stage I-IV),Hypertension, Heart Failure,Hyperlipidemia Other Pertinent Diagnosis Nephrotic syndrome, Depression , GERD, Volume overload Current Diet Renal w/Ensure Enlive Labs/Tests A1c 5.8 Pertinent Medications Zofran, K-dur, Lasix Height 5 ft 10 in Weight 83.1 kg [place] Body Weight (kg) 75.45 BMI 26.2 Subjective/Other Information Consulted for ONS diet. Screened for new onset DM. Pt stated that his appetite is good. Stated that ate 50% of breakfast and all of his lunch except for the chicken because it was not seasoned. Noted preferences. Pt stated that he drank some of the Ensure Enlive. Pt stated that he was diagnosed w/DM in the past but wants to bring A1c out of pre diabetic range. Pt stated that he is unable to read the print on nutritional labels. 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 Burn Absent Trauma Absent #1 Nutrition Diagnosis Inadequate oral intake Etiology food preferences As Evidenced by Signs and Symptoms pt statement that he ate 50% of his breakfast and all of his lunch except the chicken Is patient on ventilator? No Is Patient Ambulatory and/or Out of Bed No [facility] 1887.000 Calculation Used for Recommendations [facility] Additional Notes Protein Needs: (0.8-1g/kg) Fluid Needs: 1 ml/kcal Nutrition Intervention Change Diet Order: Continue current Add Supplement/Snack (indicate name/kcal Nepro 1 daily /protein ) Provides kCal: 425 Provides Protein (gm) 19 Education Handouts Provided Diabetes Nutrition Placemat Goal #1 Meet at least 75% of calorie and protein needs via PO and ONS intakes Anticipated Discharge Needs: Renal diet Follow-Up By: 11/01/18 Additional Comments Follow for PO and ONS intakes
[2018-11-01 05:49] LABS: Calcium 7.1 mg/dL (8.4-10.2)
[2018-11-01] MEDS: LASIX IV SCH ×2 (06:37→17:16)
--- NOTE | 2018-11-01 07:22 | Progress Note ---
Assessment and Plan Assessment and plan: Patient is a 78 yo man with a history of hypertension, CKD, GERD, BPH, depression, dyslipidemia who presents to [facility] via direct admission from Field Sales Representative, Dr. Toledo's office for anasarca with sob. He was found to have significant pitting leg edema and severely low albumin. * TTE conclusions: global left ventricular wall motion and contractility are within normal limits, estimated EF 55-60%, abnormal left ventricular diastolic filling is observed consistent with impaired relaxation, moderate pleural effusion, mild AR -Anasarca due to nephrotic syndrome vs CHF: 24 hour protein done Nephrology following, input noted, treat with iv lasix twice daily and IV albumin and talisha tor renal function closely, Nephrology is following -Severe hypoalbuminemia: IV albumin daily per Renal -ARF/CKD 4, atn+vasomotor suspected, poa: Nephrology consulted, input note, no HD yet -Acute diastolic heart failure: treat with iv lasix, EF 55-650% -Hypokalemia: replete and monitor bmp closely -Hypertension: continue antihypertensive -Severe malnutrition; consult Counter Checker, treat with albumin -GERD: prontonix -Dyslipidemia: statin -BPH; continue flomax DVT ppx: sq heparin Disposition: continue inpatient care, d/c once cleared by Nephrology, History Interval history: Patient was seen and examined. Follow-up on current diagnosis of Anasarca. No overnight events reported to me. Patient denies any chest pain, nausea/vomiting or severe headaches. Imaging, nursing note, chart, labs and old chart reviewed. Discussed with patient. Daughter Rubi at bedside Hospitalist Physical - Physical exam Narrative exam: Gen: thin frail, chronic disable appearing WDWN, NAD, Awake, Alert, Orientated x 3 HEENT: NCAT, EOMI, PERRL, OP Clear Neck: supple, no adenopathy, no thyromegaly, no JVD CVS/Heart: RRR, normal S1S2, pulses present bilaterally Chest/Lungs: diminished, Symmetrical chest expansion, good air entry bilaterally GI/Abdomen: soft, diminished, good bowel sounds, no guarding or rebound /Bladder: sha anasarcha, no suprapubic tenderness, no CVA or paraspinal tenderness Extermity/Skin: significant bilateral pitting leg edema MSK: FROM x 4 Neuro: CN 2-12 grossly intact, no new focal deficits Psych: calm - Constitutional Vitals: Temp Pulse Resp BP Pulse Ox 98.3 F 59 L 18 121/55 89 11/01/18 04:08 11/01/18 04:08 11/01/18 04:08 11/01/18 04:08 11/01/18 04:08 Results - Labs CBC & Chem 7: 10/30/18 19:50 11/01/18 05:12 Labs: Laboratory Last Values WBC 10.6 K/mm3 (4.5-11.0) 10/30/18 19:50 RBC 3.88 M/mm3 (3.65-5.03) 10/30/18 19:50 Hgb 11.4 gm/dl (11.8-15.2) L 10/30/18 19:50 Hct 36.6 % (35.5-45.6) 10/30/18 19:50 MCV 94 fl (84-94) 10/30/18 19:50 MCH 29 pg (28-32) 10/30/18 19:50 MCHC 31 % (32-34) L 10/30/18 19:50 RDW 16.1 % (13.2-15.2) H 10/30/18 19:50 Plt Count 242 K/mm3 (140-440) 10/30/18 19:50 Lymph % (Auto) [place] 10/30/18 19:50 [place] % (Auto) Shear Scrapman 10/30/18 19:50 Eos % (Auto) Shear Scrapman 10/30/18 19:50 Baso % (Auto) Shear Scrapman 10/30/18 19:50 Lymph # Shear Scrapman 10/30/18 19:50 [place] # Shear Scrapman 10/30/18 19:50 Eos # Shear Scrapman 10/30/18 19:50 Baso # Shear Scrapman 10/30/18 19:50 Seg Neutrophils % Shear Scrapman 10/30/18 19:50 Seg Neutrophils # Shear Scrapman 10/30/18 19:50 Sodium 141 mmol/L (137-145) 11/01/18 05:12 Potassium 4.0 mmol/L (3.6-5.0) 11/01/18 05:12 Chloride 111.5 mmol/L (98-107) H 11/01/18 05:12 Carbon Dioxide 23 mmol/L (22-30) 11/01/18 05:12 11 mmol/L 11/01/18 05:12 BUN 27 mg/dL (9-20) H 11/01/18 05:12 3.1 mg/dL (0.8-1.5) H 11/01/18 05:12 Estimated GFR 20 ml/min 11/01/18 05:12 9 % 11/01/18 05:12 Glucose 80 mg/dL (75-100) 11/01/18 05:12 POC Glucose 145 (70-105) H 10/29/18 21:08 5.8 % (4-6) 10/29/18 19:36 Calcium 7.1 mg/dL (8.4-10.2) L 11/01/18 05:12 Magnesium 1.80 mg/dL (1.7-2.3) 11/01/18 05:12 0.20 mg/dL (0.1-1.2) 10/30/18 19:50 AST 30 units/L (5-40) 10/30/18 19:50 ALT 33 units/L (7-56) 10/30/18 19:50 107 units/L (35-129) 10/30/18 19:50 NT-Pro-B Natriuret Pep 4629 pg/mL (0-900) H 10/30/18 19:50 4.4 g/dL (6.3-8.2) L 10/30/18 19:50 1.4 g/dL (3.9-5) L 10/30/18 19:50 0.5 % 10/30/18 19:50 Triglycerides 28 mg/dL (2-149) 10/29/18 19:36 Cholesterol 39 mg/dL (50-199) L 10/29/18 19:36 12 mg/dL (50-130) L 10/29/18 19:36 26 mg/dL (40-59) L 10/29/18 19:36 1.50 % 10/29/18 19:36 TSH 15.260 mlU/mL (0.270-4.200) H 10/30/18 19:50 1000 ml 10/29/18 22:15 1000 ml 10/29/18 22:15 69.0 mg/dL (0.1-20.0) H 10/29/18 22:15 Ur Creatinine 24 Hour 0.7 (0.8-2.8) L 10/29/18 22:15 6.2 mg/dL (0.1-34.0) 10/29/18 22:15 Ur Microalbumin 24 Hr 43.0 mcg/min (0-29) H 10/29/18 22:15 Ur Total Protein 24 Hr 220.00 mg/dL (2-200) H 10/29/18 22:15 256 10/29/18 22:15 Ur Urea Nitrogen 24 Hr 2.56 10/29/18 22:15 22 mg/dL (5-11.8) H 10/29/18 22:15 Hep Bs Antigen Non-reactive (Negative) 10/30/18 10:53 Non-reactive (NonReactive) 10/30/18 10:53 Active Medications - Current Medications Current Medications: Generic Name Dose Route Start Last Admin Trade Name Freq PRN Reason Stop Dose Admin Acetaminophen 650 mg 10/29/18 19:12 Tylenol PO Q4H PRN Pain MILD(1-3)/Fever >100.5/CORONEL Albumin Human 25 gm 10/30/18 22:00 10/31/18 21:08 Alburx 25% (Albumin) IV 25 gm Q12HR BEBO Administration Amlodipine Besylate 10 mg 10/30/18 10:00 10/31/18 11:06 Norvasc PO 10 mg DAILY BEBO Administration Atorvastatin Calcium 10 mg 10/30/18 22:00 10/31/18 21:08 Lipitor PO 10 mg QHS BEBO Administration Calcitriol 0.5 mcg 10/30/18 10:00 10/31/18 10:30 Rocaltrol PO 0.5 mcg QDAY BEBO Administration Citalopram Hydrobromide 20 mg 10/30/18 10:00 10/31/18 10:30 Celexa PO 20 mg DAILY BEBO Administration Furosemide 80 mg 10/30/18 18:00 11/01/18 06:37 Lasix IV 80 mg 0600,1800 BEBO Administration Heparin Sodium (Porcine) 5,000 unit 10/29/18 22:00 10/31/18 21:09 Heparin SUB-Q 5,000 unit Q12HR BEBO Administration Metoclopramide HCl 10 mg 10/29/18 19:12 Reglan IV Q6H PRN Nausea And Vomiting Metoprolol Tartrate 50 mg 10/30/18 10:00 10/31/18 21:09 Lopressor PO Not Given BID BEBO Ondansetron HCl 4 mg 10/29/18 19:12 10/30/18 09:27 Zofran IV 4 mg Q8H PRN Administration Nausea And Vomiting Oxycodone/Acetaminophen 1 tab 10/29/18 19:12 10/29/18 22:47 Percocet 5/325 PO 1 tab Q6H PRN Administration Pain, Moderate (4-6) Pantoprazole Sodium 40 mg 10/30/18 10:00 10/31/18 10:30 Protonix PO 40 mg DAILY BEBO Administration Potassium Chloride 20 meq 10/30/18 10:00 10/31/18 21:08 K-Dur PO 20 meq Q12H BEBO Administration Sodium Chloride 10 ml 10/29/18 22:00 10/31/18 21:09 Sodium Chloride Flush Syringe 10 Ml IV 10 ml BID BEBO Administration Sodium Chloride 10 ml 10/29/18 19:12 Sodium Chloride Flush Syringe 10 Ml IV PRN PRN LINE FLUSH Tamsulosin HCl 0.4 mg 10/30/18 10:00 10/31/18 10:30 Flomax PO 0.4 mg QDAY BEBO Administration Nutrition/Malnutrition Assess - Dietary Evaluation Nutrition/Malnutrition Findings: Nutrition Notes Start: 10/30/18 17:21 Freq: Status: Active Protocol: Document 10/30/18 17:21 RM (Rec: 10/30/18 17:35 RM [email or web address]) Nutrition Notes Need for Assessment generated from: MD Order Initial or Follow up Assessment Current Diagnosis CKD(stage I-IV),Hypertension, Heart Failure,Hyperlipidemia Other Pertinent Diagnosis Nephrotic syndrome, Depression , GERD, Volume overload Current Diet Renal w/Ensure Enlive Labs/Tests A1c 5.8 Pertinent Medications Zofran, K-dur, Lasix Height 5 ft 10 in Weight 83.1 kg [place] Body Weight (kg) 75.45 BMI 26.2 Subjective/Other Information Consulted for ONS diet. Screened for new onset DM. Pt stated that his appetite is good. Stated that ate 50% of breakfast and all of his lunch except for the chicken because it was not seasoned. Noted preferences. Pt stated that he drank some of the Ensure Enlive. Pt stated that he was diagnosed w/DM in the past but wants to bring A1c out of pre diabetic range. Pt stated that he is unable to read the print on nutritional labels. 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 Burn Absent Trauma Absent #1 Nutrition Diagnosis Inadequate oral intake Etiology food preferences As Evidenced by Signs and Symptoms pt statement that he ate 50% of his breakfast and all of his lunch except the chicken Is patient on ventilator? No Is Patient Ambulatory and/or Out of Bed No REE-([facility]-confined to bed) 1887.000 Calculation Used for Recommendations [facility] Additional Notes Protein Needs: (0.8-1g/kg) Fluid Needs: 1 ml/kcal Nutrition Intervention Change Diet Order: Continue current Add Supplement/Snack (indicate name/kcal Nepro 1 daily /protein ) Provides kCal: 425 Provides Protein (gm) 19 Education Handouts Provided Diabetes Nutrition Placemat Goal #1 Meet at least 75% of calorie and protein needs via PO and ONS intakes Anticipated Discharge Needs: Renal diet Follow-Up By: 11/01/18 Additional Comments Follow for PO and ONS intakes
--- NOTE | 2018-11-01 09:40 | Progress Note ---
Assessment and Plan - Patient Problems (1) CKD (chronic kidney disease), stage IV Current Visit: Yes Status: Chronic Plan to address problem: Patient with essentially progressively worsening chronic kidney disease noted on laboratory studies. He is now progressed to stage IV. He is not presenting with any acute uremic symptoms at this time that would require any hemodialysis initiation. We will aggressively diuresis with current regimen of IV Lasix twice a day along with albumen supplementation to further augment appropriate diuresis. (2) Hypertensive chronic kidney disease with stage 1 through stage 4 chronic kidney disease, or unspecified chronic kidney disease Current Visit: Yes Status: Chronic Plan to address problem: Continue on current regimen and we'll monitor closely (3) Type 2 diabetes mellitus with diabetic chronic kidney disease Current Visit: Yes Status: Chronic Qualifiers: Chronic kidney disease stage: stage 4 (severe) Plan to address problem: Diabetes management per primary team. (4) Fluid overload Current Visit: Yes Status: Acute Plan to address problem: Significantly worsening fluid overload over the past 2-3 weeks of unclear etiology. One possible cause could be just his progressive chronic kidney disease. He has significant anasarca and edema on examination and he underwent a 24-hour urine collection for proteinuria evaluation, with only 220 mg/dL noted. This is in the setting of low urine volume collection as well as low urine creatinine which may overall affect accuracy of results. Serologic tests are pending at this time. Will continue on current IV diuretic regimen as an inpatient. When patient is discharged would favor that he is discharged on bumex 2mg BID, and also metola zone 5 mg which he is to take 3 days a week (every MWF or TTS). Instructed the patient that he is to take the metolazone 30 mins prior to the am dose of the bumex. He needs to follow up with Dr Toledo in 2 weeks post discharge. (5) Secondary hyperparathyroidism (of renal origin) Current Visit: Yes Status: Acute Plan to address problem: Patient to continue home dose of calcitriol. Subjective Date of service: 11/01/18 Interval history: No acute events overnight. He is diuresing more appropriately at this time. Swelling is improving. ECHO results reviewed. Overall renal function is stable. Scrotal edema has improved. Objective - Vital Signs Vital signs: Vital Signs - 12hr 10/31/18 11/01/18 11/01/18 23:55 04:08 08:14 Temperature 98.2 F 98.3 F 98.9 F Pulse Rate 59 L 59 L 61 Respiratory 18 18 18 Rate Blood Pressure 151/68 121/55 139/68 O2 Sat by Pulse 99 89 89 Oximetry - General Appearance General appearance: well-developed, well-nourished, appears stated age EENT: ATNC, PERRL Neck: no JVD, no thyromegaly Respiratory: Present: Clear to Ascultation Cardiology: regular, S1S2 Gastrointestinal: normal, normoactive bowel sounds Integumentary: no rash, warm and dry Neurologic: no focal deficit, no asterixis, alert and oriented x3 Musculoskeletal: other (2+ pitting edema ) Psychiatric: mood/affect appropriate, cooperative - Lab 10/30/18 19:50 11/01/18 05:12 Most recent lab results Calcium 7.1 mg/dL (8.4-10.2) L 11/01/18 05:12 Magnesium 1.80 mg/dL (1.7-2.3) 11/01/18 05:12 69.0 mg/dL (0.1-20.0) H 10/29/18 22:15 Ur Total Protein 24 Hr 220.00 mg/dL (2-200) H 10/29/18 22:15 22 mg/dL (5-11.8) H 10/29/18 22:15 - Allied health notes Allied health notes reviewed: nursing Medications & Allergies - Medications Allergies/Adverse Reactions: Allergies No Known Allergies Allergy (Unverified 10/29/18 17:02) Home Medications: Home Medications Medication Instructions Recorded Confirmed Last Taken Type Amlodipine Besylate [Norvasc] 10 mg PO DAILY 10/29/18 10/29/18 10/29/18 History 10 Atorvastatin Calcium [Lipitor] 10 mg PO DAILY 10/29/18 10/29/18 10/29/18 History 10MG Furosemide [Lasix TAB] 40 mg PO BID 10/29/18 10/29/18 10/29/18 History 40MG Metoprolol Tartrate 50 mg PO BID 10/29/18 10/29/18 10/29/18 History 50MG Pantoprazole Sodium 40 mg PO DAILY 10/29/18 10/29/18 10/29/18 History Calcitriol [Rocaltrol] 0.5 mcg PO 10/30/18 Unknown History Citalopram Hydrobromide 20 mg PO DAILY 10/30/18 10/31/18 Unknown History [Citalopram HBr] Potassium 20 meq PO BID 10/30/18 10/30/18 10/29/18 History 20MG Tamsulosin [Flomax] 0.4 mg PO QDAY 10/30/18 10/31/18 Unknown History Active Medications: Generic Name Dose Route Start Last Admin Trade Name Freq PRN Reason Stop Dose Admin Acetaminophen 650 mg 10/29/18 19:12 Tylenol PO Q4H PRN Pain MILD(1-3)/Fever >100.5/CORONEL Albumin Human 25 gm 10/30/18 22:00 10/31/18 21:08 Alburx 25% (Albumin) IV 25 gm Q12HR BEBO Administration Amlodipine Besylate 10 mg 10/30/18 10:00 10/31/18 11:06 Norvasc PO 10 mg DAILY BEBO Administration Atorvastatin Calcium 10 mg 10/30/18 22:00 10/31/18 21:08 Lipitor PO 10 mg QHS BEBO Administration Calcitriol 0.5 mcg 10/30/18 10:00 10/31/18 10:30 Rocaltrol PO 0.5 mcg QDAY BEBO Administration Citalopram Hydrobromide 20 mg 10/30/18 10:00 10/31/18 10:30 Celexa PO 20 mg DAILY BEBO Administration Furosemide 80 mg 10/30/18 18:00 11/01/18 06:37 Lasix IV 80 mg 0600,1800 BEBO Administration Heparin Sodium (Porcine) 5,000 unit 10/29/18 22:00 10/31/18 21:09 Heparin SUB-Q 5,000 unit Q12HR BEBO Administration Metoclopramide HCl 10 mg 10/29/18 19:12 Reglan IV Q6H PRN Nausea And Vomiting Metoprolol Tartrate 50 mg 10/30/18 10:00 10/31/18 21:09 Lopressor PO Not Given BID BEBO Ondansetron HCl 4 mg 10/29/18 19:12 10/30/18 09:27 Zofran IV 4 mg Q8H PRN Administration Nausea And Vomiting Oxycodone/Acetaminophen 1 tab 10/29/18 19:12 10/29/18 22:47 Percocet 5/325 PO 1 tab Q6H PRN Administration Pain, Moderate (4-6) Pantoprazole Sodium 40 mg 10/30/18 10:00 10/31/18 10:30 Protonix PO 40 mg DAILY BEBO Administration Potassium Chloride 20 meq 10/30/18 10:00 10/31/18 21:08 K-Dur PO 20 meq Q12H BEBO Administration Sodium Chloride 10 ml 10/29/18 22:00 10/31/18 21:09 Sodium Chloride Flush Syringe 10 Ml IV 10 ml BID BEBO Administration Sodium Chloride 10 ml 10/29/18 19:12 Sodium Chloride Flush Syringe 10 Ml IV PRN PRN LINE FLUSH Tamsulosin HCl 0.4 mg 10/30/18 10:00 10/31/18 10:30 Flomax PO 0.4 mg QDAY BEBO Administration
[2018-11-01] MEDS: NORVASC PO SCH (10:30)
[2018-11-01] MEDS: LOPRESSOR PO SCH ×2 (10:30→21:19)
[2018-11-01] MEDS: FLOMAX PO SCH (10:33)
[2018-11-01] MEDS: K-DUR PO SCH ×2 (10:34→21:18)
[2018-11-01] MEDS: PROTONIX PO SCH (10:34)
[2018-11-01] MEDS: HEPARIN SUB-Q SCH ×2 (10:34→21:19)
[2018-11-01] MEDS: celeXA PO SCH (10:34)
[2018-11-01] MEDS: ROCALTROL PO SCH (10:34)
[2018-11-01] MEDS: SODIUM CHLORIDE FLUSH SYRINGE 10 ML IV SCH ×2 (10:37→21:19)
[2018-11-01] MEDS: ALBURX 25% (ALBUMIN) IV SCH ×2 (11:00→21:45)
[2018-11-01 20:23] LABS: HIV-1 RNA QN PCR <1.30 Log cps/mL; HIV-1 RNA QN PCR <20 Copies/mL
[2018-11-02 05:42] LABS: Calcium 7.8 mg/dL (8.4-10.2)
[2018-11-02] MEDS: LASIX IV SCH (06:33)
[2018-11-02] MEDS: celeXA PO SCH (09:27)
[2018-11-02] MEDS: ROCALTROL PO SCH (09:27)
[2018-11-02] MEDS: PROTONIX PO SCH (09:27)
[2018-11-02] MEDS: FLOMAX PO SCH (09:27)
[2018-11-02] MEDS: NORVASC PO SCH (09:28)
[2018-11-02] MEDS: LOPRESSOR PO SCH (09:28)
[2018-11-02] MEDS: SODIUM CHLORIDE FLUSH SYRINGE 10 ML IV SCH (09:29)
[2018-11-02] MEDS: K-DUR PO SCH (09:31)
[2018-11-02] MEDS: ALBURX 25% (ALBUMIN) IV SCH (09:32)
[2018-11-02] MEDS: HEPARIN SUB-Q SCH (09:32)
[2018-11-02 09:49] VITALS: BP 148/73
--- NOTE | 2018-11-02 10:54 | Progress Note ---
Assessment and Plan - Patient Problems (1) CKD (chronic kidney disease), stage IV Current Visit: Yes Status: Chronic Plan to address problem: Patient with essentially progressively worsening chronic kidney disease noted on laboratory studies. He is now progressed to stage IV. He is not presenting with any acute uremic symptoms at this time that would require any hemodialysis initiation. We have been aggressively diuresising with current regimen of IV Lasix twice a day along with albumen supplementation to further augment appropriate diuresis. From a renal standpoint patient is stable for discharge at this time. We will suggest that patient follows up with Dr. Toledo in 2 weeks in the outpatient clinic. Recommend that upon discharge his diuretic regimen be changed to Bumex 2 mg twice a day along with metolazone 5 mg to be proceeding the morning dose of Bumex. He can take the metolazone 3 times a week every Sunday and Sunday. He is to assess his fluid status daily with daily weights. (2) Fluid overload Current Visit: Yes Status: Acute Plan to address problem: Significantly worsening fluid overload over the past 2-3 weeks of unclear etiology. One possible cause could be just his progressive chronic kidney disease. He has significant anasarca and edema on examination and he underwent a 24-hour urine collection for proteinuria evaluation, with only 220 mg/dL noted. This is in the setting of low urine volume collection as well as low urine creatinine which may overall affect accuracy of results. Serologic tests are pending at this time. Will continue on current IV diuretic regimen as an inpatient. When patient is discharged would favor that he is discharged on bumex 2mg BID, and also metolazone 5 mg which he is to take 3 days a week (every MWF or TTS). Instructed the patient that he is to take the metolazone 30 mins prior to the am dose of the bumex. He needs to follow up with Dr Toledo in 2 weeks post discharge. (3) Hypertensive chronic kidney disease with stage 1 through stage 4 chronic kid nicholas disease, or unspecified chronic kidney disease Current Visit: Yes Status: Chronic Plan to address problem: Continue on current regimen and we'll monitor closely (4) Type 2 diabetes mellitus with diabetic chronic kidney disease Current Visit: Yes Status: Chronic Qualifiers: Chronic kidney disease stage: stage 4 (severe) Plan to address problem: Diabetes management per primary team. (5) Secondary hyperparathyroidism (of renal origin) Current Visit: Yes Status: Acute Plan to address problem: Patient to continue home dose of calcitriol. Subjective Date of service: 11/02/18 Interval history: No acute issues overnight. Overall renal function is stable and continues to improve with adequate diuresis. Overall lower extremity edema is improving. His scrotal edema has improved since admission. Echocardiogram was done y esterday with findings reviewed. Echo findings were significant for ejection fraction of 55-60% with an abnormal left ventricular diastolic filling consistent with impaired relaxation. There was some moderate pleural effusion along with some mild aortic regurg noted. Objective - Vital Signs Vital signs: Vital Signs - 12hr 11/01/18 11/02/18 11/02/18 23:46 03:55 09:28 Temperature 98.0 F 98.0 F Pulse Rate 58 L 61 62 Respiratory 20 20 Rate Blood Pressure 143/72 149/65 148/73 O2 Sat by Pulse 94 97 Oximetry - General Appearance General appearance: well-developed, well-nourished, appears stated age EENT: ATNC, PERRL Neck: no JVD, no thyromegaly Respiratory: Present: Clear to Ascultation Cardiology: regular, S1S2 Gastrointestinal: normal Integumentary: no rash, warm and dry Neurologic: no focal deficit, no asterixis, CN 3-12 intact Musculoskeletal: other (2+ edema ) Psychiatric: mood/affect appropriate, cooperative - Lab 10/30/18 19:50 11/02/18 04:56 Most recent lab results Calcium 7.8 mg/dL (8.4-10.2) L 11/02/18 04:56 Magnesium 1.80 mg/dL (1.7-2.3) 11/01/18 05:12 69.0 mg/dL (0.1-20.0) H 10/29/18 22:15 Ur Total Protein 24 Hr 220.00 mg/dL (2-200) H 10/29/18 22:15 22 mg/dL (5-11.8) H 10/29/18 22:15 - Imaging Chest x-ray: report reviewed - Allied health notes Allied health notes reviewed: nursing Medications & Allergies - Medications Allergies/Adverse Reactions: Allergies No Known Allergies Allergy (Unverified 10/29/18 17:02) Home Medications: Home Medications Medication Instructions Recorded Confirmed Last Taken Type Amlodipine Besylate [Norvasc] 10 mg PO DAILY 10/29/18 10/29/18 10/29/18 History 10 Atorvastatin Calcium [Lipitor] 10 mg PO DAILY 10/29/18 10/29/18 10/29/18 History 10MG Furosemide [Lasix TAB] 40 mg PO BID 10/29/18 10/29/18 10/29/18 History 40MG Metoprolol Tartrate 50 mg PO BID 10/29/18 10/29/18 10/29/18 History 50MG Pantoprazole Sodium 40 mg PO DAILY 10/29/18 10/29/18 10/29/18 History Calcitriol [Rocaltrol] 0.5 mcg PO 10/30/18 Unknown History Citalopram Hydrobromide 20 mg PO DAILY 10/30/18 10/31/18 Unknown History [Citalopram HBr] Potassium 20 meq PO BID 10/30/18 10/30/18 10/29/18 History 20MG Tamsulosin [Flomax] 0.4 mg PO QDAY 10/30/18 10/31/18 Unknown History Active Medications: Generic Name Dose Route Start Last Admin Trade Name Freq PRN Reason Stop Dose Admin Acetaminophen 650 mg 10/29/18 19:12 Tylenol PO Q4H PRN Pain MILD(1-3)/Fever >100.5/CORONEL Albumin Human 25 gm 10/30/18 22:00 11/02/18 09:32 Alburx 25% (Albumin) IV 25 gm Q12HR BEBO Administration Amlodipine Besylate 10 mg 10/30/18 10:00 11/02/18 09:28 Norvasc PO 10 mg DAILY BEBO Administration Atorvastatin Calcium 10 mg 10/30/18 22:00 11/01/18 21:18 Lipitor PO 10 mg QHS BEBO Administration Calcitriol 0.5 mcg 10/30/18 10:00 11/02/18 09:27 Rocaltrol PO 0.5 mcg QDAY BEBO Administration Citalopram Hydrobromide 20 mg 10/30/18 10:00 11/02/18 09:27 Celexa PO 20 mg DAILY BEBO Administration Furosemide 80 mg 10/30/18 18:00 11/02/18 06:33 Lasix IV 80 mg 0600,1800 BEBO Administration Heparin Sodium (Porcine) 5,000 unit 10/29/18 22:00 11/02/18 09:32 Heparin SUB-Q 5,000 unit Q12HR BEBO Administration Metoclopramide HCl 10 mg 10/29/18 19:12 Reglan IV Q6H PRN Nausea And Vomiting Metoprolol Tartrate 50 mg 10/30/18 10:00 11/02/18 09:28 Lopressor PO 50 mg BID BEBO Administration Ondansetron HCl 4 mg 10/29/18 19:12 10/30/18 09:27 Zofran IV 4 mg Q8H PRN Administration Nausea And Vomiting Oxycodone/Acetaminophen 1 tab 10/29/18 19:12 10/29/18 22:47 Percocet 5/325 PO 1 tab Q6H PRN Administration Pain, Moderate (4-6) Pantoprazole Sodium 40 mg 10/30/18 10:00 11/02/18 09:27 Protonix PO 40 mg DAILY BEBO Administration Potassium Chloride 20 meq 10/30/18 10:00 11/02/18 09:31 K-Dur PO 20 meq Q12H BEBO Administration Sodium Chloride 10 ml 10/29/18 22:00 11/02/18 09:29 Sodium Chloride Flush Syringe 10 Ml IV 10 ml BID BEBO Administration Sodium Chloride 10 ml 10/29/18 19:12 Sodium Chloride Flush Syringe 10 Ml IV PRN PRN LINE FLUSH Tamsulosin HCl 0.4 mg 10/30/18 10:00 11/02/18 09:27 Flomax PO 0.4 mg QDAY BEBO Administration
--- NOTE | 2018-11-02 13:01 | Discharge Summary ---
Providers - Providers Date of Admission: 10/29/18 18:37 Date of discharge: 11/02/18 Attending physician: SARATH PALMA 10/29/18 17:19 Consult to Physician [CONS] Routine Comment: Consulting Provider: SID TOLEDO Physician Instructions: Reason For Exam: CKD STAGE 4 10/29/18 19:12 Consult to Physician [CONS] Routine Comment: Consulting Provider: SID TOLEDO Physician Instructions: Reason For Exam: ckd 10/31/18 15:39 Occupational Therapy Evaluate and Treat [CONS] Routine Comment: Reason For Exam: ADLs evaluation Physical Therapy Evaluation and Treat [CONS] Routine Comment: Reason For Exam: gait evaluation/ambulatory dysfunction Primary care physician: BERT MOORE Hospitalization Condition: Stable Hospital course: Patient is a Patient is a 78 yo man with a history of hypertension, CKD 3, GERD, BPH, depression and dyslipidemia who presented to [facility] via direct admission from Winding Department Supervisor, Dr. Toledo's office for anasarca with sob. He was found to have significant pitting leg edema and severely low albumin. He was treated with 80 mg iv lasix twice a day and IV albumin drip. The 24 hour urine collection was d one, with only 220 mg/dL proteinuria noted but urine volume was low as well as low urine creatinine which may overall affect accuracy of results. Serologic tests are pending at this time and he will follow up results with Dr. Toledo. * TTE conclusions: global left ventricular wall motion and contractility are within normal limits, estimated EF 55-60%, abnormal left ventricular diastolic filling is observed consistent with impaired relaxation, moderate pleural effusion, mild AR Discharge Diagnoses: -Anasarca due to progressive worsening CKD to stage 4 now with diastolic heart failure: 24 hour protein done Nephrology following, input noted, treat with iv lasix twice daily and IV albumin and monitor renal function closely, -Severe hypoalbuminemia: IV albumin daily per Renal -ARF/CKD 4, atn+vasomotor suspected, poa: Nephrology consulted, input note, no HD yet -Acute diastolic heart failure: treat with iv lasix, EF 55-60% -Hypertensive chronic kidney disease with stage 1 through stage 4 chronic kidney disease, or unspecified chronic kidney disease -Hypokalemia: replete and monitor bmp closely -Type 2 diabetes mellitus with diabetic chronic kidney disease -Hypertension: continue antihypertensive -Severe malnutrition; consult Infrastructure Design Engineer, treat with albumin -Secondary hyperparathyroidism (of renal origin), continue home dose of calcitriol. -GERD: prontonix -Dyslipidemia: statin -BPH; continue flomax Disposition: DC- TO HOME OR SELFCARE Time spent for discharge: 36 minutes Core Measure Documentation - Palliative Care Palliative Care/ Comfort Measures: Not Applicable - Core Measures Any of the following diagnoses?: heart failure - VTE Discharge Requirements Deep Vein Thrombosis/Pulmonary Embolism Present on Admission: No Has pt received <5 days of overlap therapy or INR<2.0: No Anticoagulant overlap therapy prescribed at discharge: No Contraindication No Overlap Therapy order at DC: Not Indicated - Heart Failure Discharge Requirements AMERICA/ARB for LVSD if EF <40%: No Reason for no AMERICA/ARB: Renal impairment Beta shashi at discharge: Yes Exam - Physical Exam Narrative exam: Gen: thin frail, chronic disable appearing WDWN, NAD, Awake, Alert, Orientated x 3 HEENT: NCAT, EOMI, PERRL, OP Clear Neck: supple, no adenopathy, no thyromegaly, no JVD CVS/Heart: RRR, normal S1S2, pulses present bilaterally Chest/Lungs: much improved air entry and bilateral bs, Symmetrical chest expansion, good air entry bilaterally GI/Abdomen: soft, diminished, good bowel sounds, no guarding or rebound /Bladder: sha anasarcha, no suprapubic tenderness, no CVA or paraspinal tenderness Extermity/Skin: significant reduced bilateral pitting leg edema MSK: FROM x 4 Neuro: CN 2-12 grossly intact, no new focal deficits Psych: calm - Constitutional Vitals: Temp Pulse Resp BP Pulse Ox 98.4 F 62 18 148/73 97 11/02/18 07:45 11/02/18 09:28 11/02/18 10:00 11/02/18 09:28 11/02/18 03:55 Plan Activity: no driving until cleared by PCP, fall precautions, other (no strenous activity until cleared by PCP) Diet: low salt, diabetic Special Instructions: record daily weights Additional Instructions: 1) Bumex 2mg twice a day, and also metolazone 5 mg MWF. Take the metolazone at least 30 mins prior to the am dose of the Bumex. 2) please keep your Full Time Staff Interpreter appointment for stress test on Aug 14th. No d riving or strenous activity before then Follow up with: BERT MOORE MD [Primary Care Provider] - 7 Days SID TOLEDO MD [Staff Physician] - 7 Days Prescriptions: Bumetanide [Bumetanide 2 mg tab] 2 mg PO BID #120 tab oxyCODONE /ACETAMINOPHEN [Percocet 5/325 mg] 1 tab PO Q6H PRN #16 tablet PRN Reason: Pain , Severe (7-10) metOLazone [Zaroxolyn] 5 mg PO 3XW 1 Days tablet
[2018-11-05 12:21] LABS: ANA Screen, IFA Negative (Negative)
[2018-11-05 16:28] LABS: Albumin 1.5 g/dL (3.8-4.8); Gamma Globulin 1.5 g/dL (0.8-1.7)
== END 2018-11-02 14:25 | disposition home health service (06) | DRG 682 ==
LOC: 4A 18:37
PROVIDERS: ADMIT Internal Medicine; ATTEND Internal Medicine
DX: N17.0 Acute kidney failure with tubular necrosis (principal); E43 Unspecified severe protein-calorie malnutrition; I50.33 Acute on chronic diastolic (congestive) heart failure; I13.0 Hypertensive heart and chronic kidney disease with heart failure and stage 1 through stage 4 chronic kidney disease, or unspecified chronic kidney disease; N04.9 Nephrotic syndrome with unspecified morphologic changes; N18.4 Chronic kidney disease, stage 4 (severe); N25.81 Secondary hyperparathyroidism of renal origin; N40.0 Benign prostatic hyperplasia without lower urinary tract symptoms; K21.9 Gastro-esophageal reflux disease without esophagitis; E78.5 Hyperlipidemia, unspecified; F32.9 Major depressive disorder, single episode, unspecified; E11.22 Type 2 diabetes mellitus with diabetic chronic kidney disease; E87.6 Hypokalemia; Z82.49 Family history of ischemic heart disease and other diseases of the circulatory system; Z79.84 Long term (current) use of oral hypoglycemic drugs; Z79.899 Other long term (current) drug therapy
CPT/HCPCS: 36415; 71046; 80048; 80053; 80061; 82043; 82570; 82962; 83036; 83735; 83880; 84156; 84165; 84443; 84540; 85025; 86038; 86160; 86225; 86706; 86803; 87536; 93005; 93010; 93306; G0378; A9270-GY; J1644; J1940; J2405; J2765; P9047